=== PATIENT | male | born 1970 | race Caucasian/White ===

== ENCOUNTER 2018-09-22 13:20 | Emergency (ER) | payer OTHER ==
[~2018-09-22] VITALS: Ht 167.6 cm; Wt 82.1 kg
[2018-09-22 13:31] VITALS: BP 128/73
--- NOTE | 2018-09-22 13:38 | NUR ---
PT AMBULATED TO ER BED 11
--- NOTE | 2018-09-22 13:40 | NUR ---
PT. CAME INTO THE ED W/ C/O RIGHT KNEE PAIN S/P FALL YESTERDAY. PT STATES HE SLIPPED AND ATTEMPTED TO BRACE HIS FALL BUT LANDED WITH ALL BODY WEIGHT ON RIGHT KNEE. PT LIMPED TO BED #11 WITH ASSISTANCE OF FRIEND. DENIES LOC. 5/10 SHARP PAIN IN R KNEE THAT IS NON RADIAITING AND NO DEFORMITY NOTED. ER MD MADE AWARE. FAMILY MEMBER AT BEDSIDE. WILL CONTINUE TO MONITOR.
--- NOTE | 2018-09-22 13:44 | NUR ---
X RAY AT BEDSIDE AT THIS TIME.
[2018-09-22 15:50] VITALS: BP 128/85
--- NOTE | 2018-09-22 15:50 | NUR ---
Patient discharged with v/s stable. Written and verbal after care instructions given and explained. Patient alert, oriented and verbalized understanding of instructions. Ambulatory with steady gait. All questions addressed prior to discharge. ID band removed. Patient advised to follow up with PMD. Rx of MOTRIN 600MG given. Patient educated on indication of medication including possible reaction and side effects. Opportunity to ask questions provided and answered.
== END 2018-09-22 15:50 | disposition home or self-care (01) ==
LOC: MED 13:20
DX: M25.561 Pain in right knee (principal); X50.1XXA Overexertion from prolonged static or awkward postures, initial encounter; Y93.89 Activity, other specified; Y92.89 Other specified places as the place of occurrence of the external cause; Y99.8 Other external cause status
CPT/HCPCS: 73562; 99283; Q0092

== ENCOUNTER 2019-01-29 12:20 | Emergency (ER) | payer OTHER ==
[~2019-01-29] VITALS: Ht 167.6 cm; Wt 81.4 kg
[2019-01-29 12:45] VITALS: BP 133/69
--- NOTE | 2019-01-29 12:48 | NUR ---
PT AMBUALTED TO LOBBY AT THIS TIME. VSS
--- NOTE | 2019-01-29 13:59 | NUR ---
PT TO ER BED 2
--- NOTE | 2019-01-29 14:10 | NUR ---
C/O LT GROIN PAIN X1 DAY. PT REPORTS LIFITNG 20LBS BAG OF ONIONS AND FELT PAIN. 6/10 PAIN THAT INCREASES WITH STANDING AND WALKING. MEDHX:DENIES . DENIES N/V/D; SKIN IS PINK/WARM/DRY; AAOX4 WITH EVEN AND STEADY GAIT; LUNGS CLEAR BL; HR EVEN AND REGULAR; PT DENIES ANY FEVER, CP, SOB, OR COUGH AT THIS TIME; PATIENT STATES PAIN OF 6/10 AT THIS TIME; VSS; PATIENT POSITIONED FOR COMFORT; HOB ELEVATED; BEDRAILS UP X2; BED DOWN. ER MD MADE AWARE OF PT STATUS.
[2019-01-29] MEDS ORDERED: HYDROcodone/APAP 5/325 MG 1 TAB TAB PO ONE (14:55)
[2019-01-29 14:59] LABS: APPEARANCE,URINE CLEAR (CLEAR); BILIRUBIN,URINE NEGATIVE (NEGATIVE); BLOOD, URINE NEGATIVE (NEGATIVE); COLOR,URINE YELLOW (YELLOW); LEUKOCYTE ESTERASE ,URINE NEGATIVE (NEGATIVE); NITRITE, URINE NEGATIVE (NEGATIVE); UGLUCOSE NEGATIVE (NEGATIVE)
[2019-01-29 15:19] VITALS: BP 123/87
--- NOTE | 2019-01-29 15:19 | NUR ---
Patient discharged with v/s stable. Written and verbal after care instructions given and explained. Patient alert, oriented and verbalized understanding of instructions. Ambulatory with steady gait. All questions addressed prior to discharge. ID band removed. Patient advised to follow up with PMD. Rx of IBUPROFEN given. Patient educated on indication of medication including possible reaction and side effects. Opportunity to ask questions provided and answered. PT WAITING IN LOBBY FOR FRIEND TO PICK HIM UP
== END 2019-01-29 15:19 | disposition home or self-care (01) ==
LOC: MED 12:20
DX: S39.011A Strain of muscle, fascia and tendon of abdomen, initial encounter (principal); X50.0XXA Overexertion from strenuous movement or load, initial encounter; Y93.89 Activity, other specified; Y92.89 Other specified places as the place of occurrence of the external cause; Y99.8 Other external cause status
CPT/HCPCS: 81003; 99284